=== PATIENT | male | born 1990 ===

== ENCOUNTER 2016-11-03 17:39 | Emergency (ER) | payer OTHER ==
[2016-11-03 18:00] VITALS: BP 128/86; PULSE 92; RESP 16; TEMP 99.3; O2SAT 99
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
== END 2016-11-03 20:04 | disposition home or self-care (01) ==
LOC: ED 17:39
DX: M54.5 Low back pain (principal); M25.50 Pain in unspecified joint